=== PATIENT | female | born 1985 | race Caucasian/White ===

== ENCOUNTER 2017-08-28 21:22 | Inpatient (IN) | payer OTHER ==
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
[2017-08-28] MEDS ORDERED: OXYTOCIN/RINGERS LACTATE 1,000 ML IV PRN (21:53)
[2017-08-28] MEDS ORDERED: LIDOCAINE 1% 300 MG/30 ML SDV SC PRN (21:53)
[2017-08-28] MEDS ORDERED: OLIVE OIL 118 ML BTL MISC PRN (21:53)
[2017-08-28] MEDS ORDERED: AMMONIA AROMATIC 1 EACH AMP IH PRN (21:53)
[2017-08-28] MEDS ORDERED: IBUPROFEN 600 MG TAB PO PRN (21:53)
[2017-08-28] MEDS ORDERED: LR 1,000 ML IV PRN (21:53)
[2017-08-28] MEDS ORDERED: TERBUTALINE SULFATE 1 MG/ML VIAL IV PRN (21:53)
[2017-08-28] MEDS ORDERED: EPSOM SALT 454 GM TP PRN (21:53)
[2017-08-28] MEDS ORDERED: MISOPROSTOL 200 MCG TAB PO PRN (21:53)
[2017-08-28 22:32] LABS: PLATELET COUNT 220 10^3/uL (150-400)
[2017-08-28] MEDS ORDERED: MISOPROSTOL 200 MCG TAB ONE (22:45)
[2017-08-28] MEDS ORDERED: OXYTOCIN 10 UNIT/ML VIAL ONE (22:45)
[2017-08-28] MEDS ORDERED: AMMONIA AROMATIC 1 EACH AMP IH ONE (22:45)
[2017-08-28] MEDS ORDERED: OLIVE OIL 118 ML BTL ONE (22:45)
[2017-08-28] MEDS ORDERED: LIDOCAINE 1% 300 MG/30 ML SDV ONE (22:45)
[2017-08-28] MEDS ORDERED: PHENYLEPHRINE HCL 100 MCG/ML SYR ONE ×2 (23:10)
[2017-08-28] MEDS ORDERED: fentaNYL 200 MCG, BUPIVACAINE 0.5% 20 ML in NS 100 ML EP SCH (23:30)
[2017-08-28] MEDS ORDERED: LIDOCAINE 2% 100 MG/5 ML SYR ONE (23:34)
--- NOTE | 2017-08-29 00:23 | PREANESOB ---
Obstetric Pre-Anesthesia Info - General Info Proposed Procedure: ARA : 3 Para: 0 STEPHEN: 09/01/17 Gestational Age: 39 week(s) and 3 day(s) - Info Status: Full Term Monitors: External FHR Pattern: Reassuring - Labor Status Cervical Dilation per last OB SVE: 10 Indications for Labor Analgesia: Augmentation of Labor, Pain Control Labor Epidural: Proposed (RBA discussed, patient agrees to proceed) Anesthesia Allergies/Adverse Reactions: Allergy/AdvReac Type Severity Reaction Status Date / Time onion Allergy Verified 08/28/17 21:48 tomato Allergy Swelling/ne Verified 08/28/17 21:48 ck,face,thr oat Visit Medications: Generic Name Dose Route Start Last Admin Trade Name Freq PRN Reason Stop Dose Admin Ammonia (Aromatic Spirit) 1 each 08/28/17 21:53 Ammonia Aromatic IH 09/07/17 21:52 ONCE PRN Fainting Lactated Ringer's 1,000 mls @ 0 mls/hr 08/28/17 21:53 Lr IV 08/29/17 21:52 PRN PRN SEE PROTOCOL CONDITIONS Protocol Per Protocol Oxytocin/Lactated Ringer's 1,000 mls @ 0 mls/hr 08/28/17 21:53 Pitocin 20 Units/Lr (Premix) IV PRN PRN Post bleeding As Directed Fentanyl 200 mcg/ Bupivacaine 100 mls @ 0 mls/hr 08/28/17 23:30 HCl 20 ml/ Sodium Chloride EP 09/07/17 23:29 CONT JULIANA Protocol As Directed Ibuprofen 600 mg 08/28/17 21:53 Motrin PO ONCE PRN post , pain Lidocaine HCl 300 mg 08/28/17 21:53 Lidocaine Hcl 1% SC 02/24/18 21:52 ONCE PRN episiotomy Magnesium Sulfate 454 gm 08/28/17 21:53 Epsom Salt TP 02/24/18 21:52 Q1H PRN perineal discomfort Misoprostol 800 - 1,000 mcg 08/28/17 21:53 Cytotec PO 02/24/18 21:52 ONCE PRN Vaginal Atony/Bleeding [place] Oil 118 ml 08/28/17 21:53 Sweet Oil MISC 02/24/18 21:52 ONCE PRN perineal massage Terbutaline Sulfate 0.25 mg 08/28/17 21:53 Brethine IV 02/24/18 21:52 ONCE PRN Tachysystole Discontinued Medications Generic Name Dose Route Start Last Admin Trade Name Jose PRN Reason Stop Dose Admin Ammonia (Aromatic Spirit) Confirm 08/28/17 22:45 Ammonia Aromatic Administered 08/28/17 22:46 Dose 1 each IH .STK-MED ONE Lidocaine HCl Confirm 08/28/17 22:45 Lidocaine Hcl 1% Administered 08/28/17 22:46 Dose 300 mg .ROUTE .STK-MED ONE Lidocaine HCl Confirm 08/28/17 23:34 Lidocaine Hcl 2% Administered 08/28/17 23:35 Dose 100 mg .ROUTE .STK-MED ONE Misoprostol Confirm 08/28/17 22:45 Cytotec Administered 08/28/17 22:46 Dose 1,000 mcg .ROUTE .STK-MED ONE [place] Oil Confirm 08/28/17 22:45 Sweet Oil Administered 08/28/17 22:46 Dose 118 ml .ROUTE .STK-MED ONE Oxytocin Confirm 08/28/17 22:45 Pitocin Administered 08/28/17 22:46 Dose 10 unit .ROUTE .STK-MED ONE Phenylephrine HCl Confirm 08/28/17 23:10 Neosynephrine Administered 08/28/17 23:11 Dose 1,000 mcg .ROUTE .STK-MED ONE Phenylephrine HCl Confirm 08/28/17 23:10 Neosynephrine Administered 08/28/17 23:11 Dose 1,000 mcg .ROUTE .STK-MED ONE - Vital Signs Height/Weight (Nursing): Height 170.18 cm Weight 78.471 kg Labs: 08/28/17 21:41 Patient ABO/Rh O POSITIVE 08/28/17 21:41
[2017-08-29] MEDS ORDERED: LR 500 ML IV PRN (00:32)
[2017-08-29] MEDS ORDERED: ONDANSETRON 4 MG/2 ML VIAL IVP PRN ×2 (00:38→08:32)
[2017-08-29] MEDS ORDERED: PHENYLEPHRINE HCL 100 MCG/ML SYR IVP PRN ×2 (00:38→08:32)
[2017-08-29] MEDS ORDERED: OXYTOCIN/RINGERS LACTATE 500 ML IV SCH (01:00)
[2017-08-29] MEDS ORDERED: fentaNYL 2MCG/ML/BUP 0.1% RTU 100 ML EP SCH (01:00)
[2017-08-29] MEDS ORDERED: LR 500 ML IV SCH (01:00)
[2017-08-29] MEDS ORDERED: BUPIVACAINE 0.25% 30 ML SDV ONE (04:27)
[2017-08-29] MEDS ORDERED: LIDOCAINE 2% 100 MG/5 ML SYR ONE (04:41)
[2017-08-29] MEDS ORDERED: LIDOCAINE 2% 5 ML SDV ONE ×2 (05:13)
--- NOTE | 2017-08-29 06:05 | SOAPPROG ---
SOAP Progress Note Assessment/Plan: Assessment: Long discussion with mom and FOC regarding forceps vs vacuum, recommended VAVD - baby feels like direct OP but there is moderate caput and as I can't feel sutures clearly, I don't want to introduce the risk of inappropriate forceps placement over the face or eyes. Bladder drained with red rubber catheter, NICU paged and present. Vacuum applied to [id number] in between contractions then I pulled with pushing over the next 3 contractions - ultimately had three pop-offs, but also with minimal progress in terms of descent of the cranium. After the 3rd pop-off I removed the vacuum and counseled them that I don't think its appropriate to use the vacuum further nor forceps. I recommended moving towards . Pt really would like to avoid this. She requested to be able to push for another hour before making decisions about OR. FHR Category II with variable decels with with pushing, but overall very reassuring tracing. GBS unknown - Declining tx. JM Subjective: After admission, Claudia eventually got an epidural and started Pitocin. She has now pushed for another 2 hrs with some descent but still +3/5 station. Still having a lot of back and hip pain with baby in OP position. Discussed options for assisted delivery vs and she'd prefer attempt at OVD. Objective: Laboratory Results 08/28/17 21:41 ICD10 Worksheet Patient Problems: Problems Problem Status Onset Prolonged second stage (of labor) Acute - ICD10 Problem Qualifiers (1) Prolonged second stage (of labor)
[2017-08-29] MEDS ORDERED: LR 500 ML IV ONE (06:43)
[2017-08-29] MEDS ORDERED: ceFAZolin 2 GM/DEXTROSE 100 ML IV ONE (06:43)
[2017-08-29] MEDS ORDERED: fentaNYL 100 MCG/2 ML INJ IVP PRN (08:32)
[2017-08-29] MEDS ORDERED: NALOXONE HCL 0.4 MG/ML INJ IVP PRN (08:32)
[2017-08-29] MEDS ORDERED: MEPERIDINE 25 MG/0.5 ML AMP IVP PRN (08:32)
--- NOTE | 2017-08-29 08:32 | PREANESOB ---
Obstetric Pre-Anesthesia Info - General Info Proposed Procedure: C/S : 3 Para: 0 STEPHEN: 09/01/17 Gestational Age: 39 week(s) and 3 day(s) - Info Status: Full Term, [place] Monitors: External FHR Pattern: Reassuring - Labor Status Cervical Dilation per last OB SVE: 10 Section History: Primary Indications for Current Section: Arrest of Descent Labor Epidural: Yes (Epidural has sparing of Rt hip and sacral nerves; will remove cath and do SAB.) Anesthesia Allergies/Adverse Reactions: Allergy/AdvReac Type Severity Reaction Status Date / Time onion Allergy Verified 08/28/17 21:48 tomato Allergy Swelling/ne Verified 08/28/17 21:48 ck,face,thr oat Visit Medications: Generic Name Dose Route Start Last Admin Trade Name Freq PRN Reason Stop Dose Admin Ammonia (Aromatic Spirit) 1 each 08/28/17 21:53 Ammonia Aromatic IH 09/07/17 21:52 ONCE PRN Fainting Lactated Ringer's 1,000 mls @ 0 mls/hr 08/28/17 21:53 Lr IV 08/29/17 21:52 PRN PRN SEE PROTOCOL CONDITIONS Protocol Per Protocol Oxytocin/Lactated Ringer's 1,000 mls @ 0 mls/hr 08/28/17 21:53 Pitocin 20 Units/Lr (Premix) IV PRN PRN Post bleeding As Directed Fentanyl 200 mcg/ Bupivacaine 100 mls @ 0 mls/hr 08/28/17 23:30 08/29/17 06: 31 HCl 20 ml/ Sodium Chloride EP 09/07/17 23:29 100 mls CONT JULIANA Administration Protocol As Directed Lactated Ringer's 500 mls @ 500 mls/hr 08/29/17 00:32 Lr IV 08/30/17 00:32 PRN PRN Maternal Hypotension Oxytocin/Lactated Ringer's 500 mls @ 0 mls/hr 08/29/17 01:00 Pitocin 30 Units/Lr (Premix) IV 02/25/18 00:59 CONT JULIANA Protocol Per Protocol Lactated Ringer's 500 mls @ 0 mls/hr 08/29/17 01:00 Lr IV 02/25/18 00:59 CONT JULIANA As Directed Lactated Ringer's 1,000 mls @ 125 mls/hr 08/29/17 07:00 Lr IV 08/30/17 06:59 CONT JULIANA Ibuprofen 600 mg 08/28/17 21:53 Motrin PO ONCE PRN post , pain Lidocaine HCl 300 mg 08/28/17 21:53 Lidocaine Hcl 1% SC 02/24/18 21:52 ONCE PRN episiotomy Magnesium Sulfate 454 gm 08/28/17 21:53 Epsom Salt TP 02/24/18 21:52 Q1H PRN perineal discomfort Misoprostol 800 - 1,000 mcg 08/28/17 21:53 Cytotec PO 02/24/18 21:52 ONCE PRN Vaginal Atony/Bleeding [place] Oil 118 ml 08/28/17 21:53 Sweet Oil MISC 02/24/18 21:52 ONCE PRN perineal massage Ondansetron HCl 4 mg 08/29/17 00:38 Zofran IVP 08/30/17 00:37 Q4HRS PRN Nausea/Vomiting, Can't Take PO Phenylephrine HCl 100 mcg 08/29/17 00:38 Neosynephrine IVP 02/25/18 00:37 .Q2M PRN Hypotension Terbutaline Sulfate 0.25 mg 08/28/17 21:53 Brethine IV 02/24/18 21:52 ONCE PRN Tachysystole Discontinued Medications Generic Name Dose Route Start Last Admin Trade Name Freq PRN Reason Stop Dose Admin Ammonia (Aromatic Spirit) Confirm 08/28/17 22:45 Ammonia Aromatic Administered 08/28/17 22:46 Dose 1 each IH .STK-MED ONE Bupivacaine HCl Confirm 08/29/17 04:27 Sensorcaine 0.25% Sdv Administered 08/29/17 04:28 Dose 30 ml .ROUTE .STK-MED ONE Cefazolin Sodium/Dextrose 100 mls @ 200 mls/hr 08/29/17 06:43 Ancef 2 Gm IV 08/29/17 07:12 ONCALL ONE Protocol Lactated Ringer's 500 mls @ 0 mls/hr 08/29/17 06:43 Lr IV 08/29/17 06:44 ONCE ONE As Directed Lidocaine HCl Confirm 08/28/17 22:45 Lidocaine Hcl 1% Administered 08/28/17 22:46 Dose 300 mg .ROUTE .STK-MED ONE Lidocaine HCl Confirm 08/28/17 23:34 Lidocaine Hcl 2% Administered 08/28/17 23:35 Dose 100 mg .ROUTE .STK-MED ONE Lidocaine HCl Confirm 08/29/17 04:41 Lidocaine Hcl 2% Administered 08/29/17 04:42 Dose 100 mg .ROUTE .STK-MED ONE Lidocaine HCl Confirm 08/29/17 05:13 Xylocaine-Mpf 2% Vial Administered 08/29/17 05:14 Dose 5 ml .ROUTE .STK-MED ONE Lidocaine HCl Confirm 08/29/17 05:13 Xylocaine-Mpf 2% Vial Administered 08/29/17 05:14 Dose 5 ml .ROUTE .STK-MED ONE Misoprostol Confirm 08/28/17 22:45 Cytotec Administered 08/28/17 22:46 Dose 1,000 mcg .ROUTE .STK-MED ONE [place] Oil Confirm 08/28/17 22:45 Sweet Oil Administered 08/28/17 22:46 Dose 118 ml .ROUTE .STK-MED ONE Oxytocin Confirm 08/28/17 22:45 Pitocin Administered 08/28/17 22:46 Dose 10 unit .ROUTE .STK-MED ONE Phenylephrine HCl Confirm 08/28/17 23:10 Neosynephrine Administered 08/28/17 23:11 Dose 1,000 mcg .ROUTE .STK-MED ONE Phenylephrine HCl Confirm 08/28/17 23:10 Neosynephrine Administered 08/28/17 23:11 Dose 1,000 mcg .ROUTE .STK-MED ONE - Anesthesia History Response to Local Anesthetics: Normal Anesthesia & Operative History: No Prior Problems - Vital Signs Latest Vital Signs (Nursing): Temp Pulse Resp BP Pulse Ox 37.5 C 103 H 18 137/81 H 93 08/29/17 06:48 08/29/17 06:48 08/29/17 06:48 08/29/17 06:48 08/29/17 06:48 Height/Weight (Nursing): Height 170.18 cm Weight 78.471 kg - Focused Exam Neck exam: FROM Mallampati Score: Class 2 Mouth exam: normal dental/mouth exam Pulmonary: no respiratory distress, no rales or rhonchi, clear to auscultation Cardiovascular: regular rate and rhythym, no murmur, rub, or gallop Labs: 08/28/17 21:41 Patient ABO/Rh O POSITIVE 08/28/17 21:41 - Plan Consent Signed and on Chart: Yes Patient/Guardian Understands and Agrees to Plan: Yes
[2017-08-29] MEDS ORDERED: fentaNYL 100 MCG/2 ML INJ ONE (08:44)
[2017-08-29] MEDS ORDERED: morphINE PF 5 MG/10 ML INJ ONE (08:45)
[2017-08-29] MEDS ORDERED: OXYTOCIN 100 UNITS/10 ML VIAL ONE (09:40)
--- NOTE | 2017-08-29 11:11 | POSTANESTH ---
Post Anesthetic Evaluation Cardiovascular Status: Normal, Stable, Similar to Pre-Op Cond Respiratory Status: Normal, Stable, Similar to Pre-op Cond. Level of Consciousness/Mental Status: Can Participate in Eval, Alert and Oriented, Other, See Comment Pain Control: Adequate, Prn Tx Ordered Nausea/Vomiting Control: Adequate, Prn Tx Ordered Complications Possibly Related to Anesthesia: None Noted (SAB initially required supplemerntation with 1% lido skin injection and nitrous oxide but worked well thereafter.)
[2017-08-29] MEDS ORDERED: BISACODYL 10 MG SUPP PR PRN (11:13)
[2017-08-29] MEDS ORDERED: POLYETHYLENE GLYCOL 3350 17 GM PKT PO PRN (11:13)
[2017-08-29] MEDS ORDERED: MAGNESIUM HYDROXIDE 30 ML UDCUP PO PRN (11:13)
[2017-08-29] MEDS ORDERED: LACTULOSE 20 GM/30 ML UDCUP PO PRN (11:13)
[2017-08-29] MEDS ORDERED: KETOROLAC 30 MG/1 ML SDV ONE (11:17)
--- NOTE | 2017-08-29 11:18 | POSTOPPROG ---
Post Op Note Date of Operation: 08/29/17 Surgeon: Donna Vu Home Advisor: Jessika Chilel SA Anesthesiologist: Scar Leger MD Anesthesia: Spinal, Other (Specify) (approx 40 cc of 1 %lidocaine at SQ in incision area) Pre-op Diagnosis: IUP at 39+ wks, arrest of descent, meconium Post-op Diagnosis: same, deep transverse arrest Indication: Home tx - complete since 3p on 08/28, failed Vacuum attempt Procedure: primary LTCS Findings: nl ut/ov, good tone, mec, nl plac delivery, 1 min delayed, vigorous baby Inf/Abcess present in the surg proc area at time of surgery?: No Depth: Organ Space EBL: 500-1000 (800) Total fluids administered: 1300 Complications: difficult time elevating baby out of pelvis - rt hand/arm came through incision but pushed back in to fascilitate bringing head up - also used vag hand Specimen(s): none
[2017-08-29] MEDS: KETOROLAC 30 MG/1 ML SDV IVP SCH ×3 (11:20→23:30)
--- NOTE | 2017-08-29 11:22 | OBDEL ---
Info Type: Primary Presentation at Delivery: Vertex (deep transv arrest) L&D Analgesia/Anesthesia Type: Epidural, Spinal (for c/s and 1 % lidocaine on SQ - 40cc), Nitrous GBS+: No (unknown - pt decl testing and abx) Intrapartum Medications: Discontinued Medications Generic Name Dose Route Start Last Admin Trade Name Jose PRN Reason Stop Dose Admin Fentanyl 200 mcg/ Bupivacaine 100 mls @ 0 mls/hr 08/28/17 23:30 08/29/17 06: 31 HCl 20 ml/ Sodium Chloride EP 09/07/17 23:29 100 mls CONT JULIANA Administration Protocol As Directed Vaginal Delivery - Labor and Delivery Onset of Contractions Date: 08/28/17 Onset of Contractions Time: 04:20 Rupture of Membranes Date: 08/28/17 Rupture of Membranes Time: 10:00 Dilation Complete Date: 08/28/17 Dilation Complete Time: 15:30 Placenta Delivery Date: 08/29/17 Placenta Delivery Time: 09:41 Total Hours of Labor: 29 Operative Report - Delivery Pre-op Diagnoses: IUP at 39+wks, arrest of descent, prolonged second stage, meconium Post-op Diagnoses: same, delivered History of Prior Section: No Nulliparous Prior to Delivery: Yes Indications for Current Section: Arrest of Descent Procedure: Unscheduled, Low Transverse Surgeon: Donna Vu Shear Helper: Jessika Chilel Anesthesiologist: Ramirez Leger Complications: Other (Specify) (difficulty elevated head up from pelvis) Findings: nl ut/ov, good tone after delivery. very difficult time elevating head - right arm del through incision but pushed back in to fascilitate getting shoulders and head to elevate. utilized vag hand pressure. vigorous baby after delivery with good tone and resp/crying - no gasses taken. 1 min delayed cord clamp. mec noted upon amniotomy. bloody urine after replacing adams but clearing after delivery. nl 2 layer ut closure, minor right angle extension incorporated into hysterotomy closure. IV Fluid (ml): 1,300 EBL: 800 Data STEPHEN: 09/01/17 Gestational Age: 39 week(s) and 4 day(s) [place] Delivery Date: 08/29/17 Delivery Time: 09:38 Sex of : Female Score (1 Min): 8 Score (5 Min): 9 ICD10 Worksheet Patient Problems: Problems Problem Status Onset S/P primary low transverse Acute Prolonged second stage (of labor) Acute
[2017-08-29] MEDS: LR 1,000 ML IV SCH ×2 (13:11→13:30)
[2017-08-29] MEDS: IBUPROFEN 600 MG TAB PO SCH ×2 (14:04→19:24)
[2017-08-29] MEDS: ACETAMINOPHEN 325 MG TAB PO SCH ×2 (15:15→19:17)
[2017-08-30] MEDS: KETOROLAC 30 MG/1 ML SDV IVP SCH (05:23)
[2017-08-30] MEDS: IBUPROFEN 600 MG TAB PO SCH ×4 (07:41→23:22)
[2017-08-30] MEDS: ACETAMINOPHEN 325 MG TAB PO SCH ×4 (07:41→23:21)
[2017-08-30] MEDS: SENNOSIDES/DOCUSATE SODIUM TAB PO SCH ×3 (07:43→21:27)
[2017-08-30] MEDS: oxyCODONE IR 5 MG TAB PO PRN ×3 (14:24→22:41)
--- NOTE | 2017-08-30 18:16 | OBPP ---
Progress Note Assessment/Plan: Assessment: p1 pod# 1 s/p PLTCS arrest of descent anemia breast feeding Plan: routine post care iron 08/30/17 18:14 Subjective/ Course: 08/30/17 18:15 patient is doing well. pain is controlled. she has been hesitant to take narcotics but will take as needed. tolerating diet. normal lochia. denies headache and changes in vision. ambulating. voiding without difficulty. working on breast feeding. Objective: 08/30/17 05:30 Patient ABO/Rh O POSITIVE 08/28/17 21:41 Temp Pulse Resp BP Pulse Ox 36.8 C 68 16 106/65 96 08/30/17 08:50 08/30/17 08:50 08/30/17 08:50 08/30/17 08:50 08/30/17 08:50 Physical Exam - Physical Exam Neck: non-tender, full range of motion, supple Respiratory: chest non-tender, lungs clear, normal breath sounds Cardiac/Chest: normal peripheral pulses, regular rate, rhythm Abdomen: normal bowel sounds, non-tender, soft Extremities: normal range of motion, non-tender, normal inspection, normal capillary refill Skin: normal color, warm/dry Neuro/Psych: no motor/sensory deficits, alert, normal mood/affect, oriented x 3
--- NOTE | 2017-08-30 20:50 | SOAPPROG ---
SOAP Progress Note Assessment/Plan: Assessment: Patient has requested acupuncture for pain management post- from C- section and attempted vaginal delivery. She would also like to see if acupuncture can help with edema and stress and anxiety. Primary area of pain is at incision. Treatment: Auricular: Foraker Acupuncture (BFA), bilateral: Cingular gyrate, [place] 2, [place] Men, [place], [place]. Acupuncture treatment shown to reduce pain via the TRIAL ATTORNEY. Scalp: Bethanie Pattong: Image of pelvic region to improve blood flow, encourage healing, and relax the low back. Right Side: MALA 1-5 Balance the BL and SP meridian. Relax the spine and erector muscles. Reduce LBP. ST [address] and LI meridian. Reduce fatigue, increase energy. Aid digestion and move the bowels. ST 37 [place] of Large Intestine. Move the bowels. ST 39 [place] of Small Intestine. Move the bowels. ST 41 Relax the neck (SCM), balance the LI and SP meridian. ST [address] meridian. Improve breast milk flow. GB 34 Empirical point to relax the tendons. Balance LR and HT meridians. GB 40 Relax the occiput. Clear heat and inflammation. Balance LR and HT meridians. Reduce pain at incision. GB 41 Master point of Viviane Sue ([place]). Relieve pain at incision. Improve blood flow and reduce inflammation. BL 65 [place] point of BL meridian. Reduce LBP. Balance KI, SI, and BL. Left Side: SI 1 Balance HT, LR, and BL. Improve breast milk flow. SI 3 Master of the DU Sue. Reduce back pain in flexion and extension. SI 4 Balance HT, LR, and BL. Relax the occiput. Reduce back pain in flexion and extension. Ling Gu Extra point for LBP. Da Natacha Extra point for LBP. LI 4 Relax the face. Improve circulation. Encourage a bowel movement. Balance the LR and ST meridians. Encourage breast milk. LI [address] [place] [address]. Balance ST and LR meridians. Support digestion. SJ 5 Decrease edema. SP [address], SI, and MALA meridians. Move fluid. Encourage digestion and breast milk. LR 3 Move qi and blood. Reduce stress and anxiety. LR 5 x 3 rosa maria Balance GB and LI. Relax the trapezius. LR 8 Build blood. Move the blood. Balance GB and LI meridians. KI 3-10 Balance BL and HT meridians. Reduce fluid and edema. Support the LBP. Relax erector muscles. [place] retained for forty-five minutes. Acupuncture points chosen using the principles of Dr. Marcum's Balance Method. Plan: 08/30/17 20:24 08/30/17 20:51 Objective: Vital Signs Temp Pulse Resp BP Pulse Ox 36.8 C 83 18 127/83 H 96 08/30/17 16:30 08/30/17 16:30 08/30/17 16:30 08/30/17 16:30 08/30/17 16:30 Laboratory Results 08/30/17 05:30 08/29/17 08/30/17 08/31/17 05:59 05:59 05:59 Intake Total 9700 Output Total 300 3250 600 Balance -300 1677 -600 ICD10 Worksheet Patient Problems: Problems Problem Status Onset Prolonged second stage (of labor) Acute S/P primary low transverse Acute
[2017-08-30] MEDS: IRON POLYSAC/IRON HEME 28 MG TAB PO SCH (23:01)
[2017-08-31] MEDS: oxyCODONE IR 5 MG TAB PO PRN ×6 (01:59→23:25)
[2017-08-31] MEDS: ACETAMINOPHEN 325 MG TAB PO SCH ×4 (05:40→23:24)
[2017-08-31] MEDS: IBUPROFEN 600 MG TAB PO SCH ×4 (05:41→23:24)
--- NOTE | 2017-08-31 07:54 | POSTANESTH ---
Post Anesthetic Evaluation Cardiovascular Status: Similar to Pre-Op Cond Respiratory Status: Similar to Pre-op Cond. Level of Consciousness/Mental Status: Alert and Oriented Pain Control: Adequate, Prn Tx Ordered Nausea/Vomiting Control: Adequate, Prn Tx Ordered Complications Possibly Related to Anesthesia: None Noted
--- NOTE | 2017-08-31 10:08 | OBPP ---
Progress Note Assessment/Plan: Assessment: p1 pod# 2 s/p PLTCS arrest of descent anemia breast feeding Plan: Routine pp care Encourage ambulation iron bid 08/31/17 14:47 Subjective/ Course: 08/30/17 18:15 patient is doing well. pain is controlled. she has been hesitant to take narcotics but will take as needed. tolerating diet. normal lochia. denies headache and changes in vision. ambulating. voiding without difficulty. working on breast feeding. 08/31/17 14:48 Doing well today - Pain controlled with oral pain meds. Passing gas and tolerating regular diet. Working on breast feeding - baby having some difficulty latching on right side. Declining support - has home pinion staker coming in to assist this afternoon. Tolerating activity as long as she has pain medication. Objective: 08/30/17 05:30 Patient ABO/Rh O POSITIVE 08/28/17 21:41 Temp Pulse Resp BP Pulse Ox 36.9 C 66 14 118/73 96 08/31/17 08:00 08/31/17 08:00 08/31/17 08:00 08/31/17 08:00 08/31/17 08:00 Uterine Position/Fundal Height: Umbilicus -1 Uterine Tone: Firm Physical Exam - Physical Exam EENT: PERRL/EOMI Neck: non-tender Respiratory: lungs clear Cardiac/Chest: normal peripheral pulses Abdomen: hypoactive bowel sounds, soft, incision (well approximated - steri strips in place) Skin: normal color Neuro/Psych: no motor/sensory deficits, alert, normal mood/affect, oriented x 3
[2017-08-31] MEDS: SENNOSIDES/DOCUSATE SODIUM TAB PO SCH ×2 (10:36→19:58)
[2017-08-31] MEDS: IRON POLYSAC/IRON HEME 28 MG TAB PO SCH ×2 (11:41→19:59)
--- NOTE | 2017-08-31 15:39 | SOAPPROG ---
SOAP Progress Note Assessment/Plan: Assessment: Patient has requested acupuncture for pain management post- from C- section and attempted vaginal delivery. She would also like to see if acupuncture can help with edema and stress and anxiety. Primary area of pain is at incision. Treatment: Auricular: Kipp Acupuncture (BFA), bilateral: Cingular gyrate, Boaz 2, Casanova Men, Point Zero, Thalamus. Acupuncture treatment shown to reduce pain via the FOOD BEVERAGE SUPERVISOR. Scalp: Bethanie Pattong: Image of pelvic region to improve blood flow, encourage healing, and relax the low back. Right Side: MALA 1-5 Balance the BL and SP meridian. Relax the spine and erector muscles. Reduce LBP. ST [address] and LI meridian. Reduce fatigue, increase energy. Aid digestion and move the bowels. ST 37 [place] of Large Intestine. Move the bowels. ST 39 [place] of Small Intestine. Move the bowels. ST 41 Relax the neck (SCM), balance the LI and SP meridian. ST [address] [place] [address] meridian. Improve breast milk flow. GB 34 Empirical point to relax the tendons. Balance LR and HT meridians. GB 40 Relax the occiput. Clear heat and inflammation. Balance LR and HT meridians. Reduce pain at incision. GB 41 Master point of Viviane Sue ([place]). Relieve pain at incision. Improve blood flow and reduce inflammation. BL 65 [place] point of BL meridian. Reduce LBP. Balance KI, SI, and BL. Left Side: SI 1 Balance HT, LR, and BL. Improve breast milk flow. SI 3 Master of the DU Sue. Reduce back pain in flexion and extension. SI 4 Balance HT, LR, and BL. Relax the occiput. Reduce back pain in flexion and extension. Ling Gu Extra point for LBP. Da Natacha Extra point for LBP. LI 4 Relax the face. Improve circulation. Encourage a bowel movement. Balance the LR and ST meridians. Encourage breast milk. LI 11 [place] of ST. Balance ST and LR meridians. Support digestion. SJ 5 Decrease edema. SP [address], SI, and MALA meridians. Move fluid. Encourage digestion and breast milk. LR 3 Move qi and blood. Reduce stress and anxiety. LR 5 x 3 rosa maria Balance GB and LI. Relax the trapezius. LR 8 Build blood. Move the blood. Balance GB and LI meridians. KI 3-10 Balance BL and HT meridians. Reduce fluid and edema. Support the LBP. Relax erector muscles. [place] retained for forty-five minutes. Acupuncture points chosen using the principles of Dr. Marcum's Balance Method. Plan: 08/30/17 20:24 08/30/17 20:51 08/31/17 15:26 Patient is experiencing 5/10 at incision with movement. She has some stress and worry regarding having enough milk. We discussed both protein and caloric requirements for . 125g protein/day for . Also told the patient to focus on her own nourishment as the way to nourish her child. Recommended watching comedy and/or things that make her relax and smile to help her milk. Treatment: Auricular: Kipp Acupuncture (BFA), bilateral: Cingular gyrate, Boaz 2, Casanova Men, Point Zero, Thalamus. Acupuncture treatment shown to reduce pain via the FOOD BEVERAGE SUPERVISOR. Scalp: Bethanie Casanova Srinivasan: Image of pelvic region to improve blood flow, encourage healing, and relax the low back. Face: DU 26 Relax the sacrum and reduce pelvic pressure. Right Side: MALA 1-5 Balance the BL and SP meridian. Relax the spine and erector muscles. Reduce LBP. ST [address] and LI meridian. Reduce fatigue, increase energy. Aid digestion and move the bowels. ST 37 [place] Large Intestine. Move the bowels. ST 39 [place] of Small Intestine. Move the bowels. ST 41 Relax the neck (SCM), balance the LI and SP meridian. ST [address] [place] [address] meridian. Improve breast milk flow. GB 34 Empirical point to relax the tendons. Balance LR and HT meridians. GB 40 Relax the occiput. Clear heat and inflammation. Balance LR and HT meridians. Reduce pain at incision. GB 41 Master point of Viviane Rogers ([place]). Relieve pain at incision. Improve blood flow and reduce inflammation. BL 57 reduce sacral pressure and possible hemorrhoids. BL 65 [place] point of BL meridian. Reduce LBP. Balance KI, SI, and BL. Left Side: SI 1 Balance HT, LR, and BL. Improve breast milk flow. Carmella Well point. SI 3 Master of the DU Sue. Reduce back pain in flexion and extension. SI 4 Balance HT, LR, and BL. Relax the occiput. Reduce back pain in flexion and extension. Ling Gu Extra point for LBP. Da Natacha Extra point for LBP. LI 4 Relax the face. Improve circulation. Encourage a bowel movement. Balance the LR and ST meridians. Encourage breast milk. LI 11 [place] of ST. Balance ST and LR meridians. Support digestion. SJ 5 Decrease edema. SP 1 Carmella Well point to reduce inflammation at . SP [address], SI, and MALA meridians. Move fluid. Encourage digestion and breast milk. SP 6 Meeting of the three yin: LR, KI, SP. Support the uterus. Balance ST, MALA , and SI to move fluid and encourage breast milk. LR 3 Move qi and blood. Reduce stress and anxiety. LR 5 x 3 rosa maria Balance GB and LI. Relax the trapezius. LR 8 Build blood. Move the blood. Balance GB and LI meridians. KI 3-10 Balance BL and HT meridians. Reduce fluid and edema. Support the LBP. Relax erector muscles. [place] retained for seventy-five minutes. Acupuncture points chosen using the principles of Dr. Marcum's Balance Method. Objective: Vital Signs Temp Pulse Resp BP Pulse Ox 36.9 C 66 14 118/73 96 08/31/17 08:00 08/31/17 08:00 08/31/17 08:00 08/31/17 08:00 08/31/17 08:00 Laboratory Results 08/30/17 05:30 08/30/17 08/31/17 09/01/17 05:59 05:59 05:59 Intake Total 9700 Output Total 3250 600 Balance 6450 -600 ICD10 Worksheet Patient Problems: Problems Problem Status Onset Prolonged second stage (of labor) Acute S/P primary low transverse Acute
[2017-08-31] MEDS: [UNRECOGNIZED DRUG - OTHER] PO SCH (23:30)
[2017-09-01] MEDS: ACETAMINOPHEN 325 MG TAB PO SCH (05:42)
[2017-09-01] MEDS: IBUPROFEN 600 MG TAB PO SCH ×3 (05:42→19:21)
[2017-09-01] MEDS: oxyCODONE IR 5 MG TAB PO PRN ×2 (05:42→10:01)
[2017-09-01] MEDS: SENNOSIDES/DOCUSATE SODIUM TAB PO SCH ×2 (09:21→09:30)
[2017-09-01] MEDS: [UNRECOGNIZED DRUG - OTHER] PO SCH (09:30)
[2017-09-01] MEDS ORDERED: HYDROCODONE/APAP 5/325 TAB PO PRN (11:03)
--- NOTE | 2017-09-01 11:14 | OBPP ---
Progress Note Assessment/Plan: Assessment: 1) s/p PCS secondary to arrest of descent, failed vacuum POD # 3 - pt is stable 2) Anemia - pt is asymptomatic Plan: Continue routine post-op care Will try Kite for better pain control Also recommend abd binder Plans on going home today Instructions reviewed with pt Rx given for Kite, Ibuprofen Cont PNV, iron and colace Pelvic rest RTO in 2 weeks for incision check 09/01/17 11:16 Subjective/ Course: 08/30/17 18:15 patient is doing well. pain is controlled. she has been hesitant to take narcotics but will take as needed. tolerating diet. normal lochia. denies headache and changes in vision. ambulating. voiding without difficulty. working on breast feeding. 08/31/17 14:48 Doing well today - Pain controlled with oral pain meds. Passing gas and tolerating regular diet. Working on breast feeding - baby having some difficulty latching on right side. Declining support - has home fabric lay out worker coming in to assist this afternoon. Tolerating activity as long as she has pain medication. 09/01/17 11:08 Pt seen and examined. She is eating breakfast. States pain is not being well controlled with Oxy, Tylenol and Motrin-she is able to ambulate okay but sitting to standing is painful. She has to stand to pee secondary to pain. Mod lochia. Denies any f/c/n/v/CP or SOB. BF with difficulty, she is using donor milk. She is frustrated about situation here in hospital and having a , but happy to be going home. Objective: 08/30/17 05:30 Patient ABO/Rh O POSITIVE 08/28/17 21:41 Temp Pulse Resp BP Pulse Ox 36.9 C 73 16 125/82 H 95 09/01/17 08:00 09/01/17 08:00 09/01/17 08:00 09/01/17 08:00 08/31/17 20:00 Uterine Position/Fundal Height: Umbilicus -2 Uterine Tone: Firm Physical Exam - Physical Exam General Appearance: WD/WN, alert, no apparent distress Respiratory: lungs clear, normal breath sounds Cardiac/Chest: regular rate, rhythm Abdomen: normal bowel sounds, non-tender (Mild TTP diffusely), soft, flatus (+) , incision (C/D/I with steri strips) Extremities: non-tender, normal inspection Skin: normal color, warm/dry Neuro/Psych: alert, normal mood/affect, oriented x 3
--- NOTE | 2017-09-01 11:17 | OBGCSDC ---
General Delivery Information - General Info : 3 Para: 1 Abortions: 0 Type: Primary L&D Analgesia/Anesthesia Type: Epidural, Spinal, Nitrous Admission Date: 08/28/17 Labs: Patient ABO/Rh O POSITIVE 08/28/17 21:41 Hct 29.0 % (38.0-47.0) L 08/30/17 05:30 - Hospital Course : 08/30/17 18:15 patient is doing well. pain is controlled. she has been hesitant to take narcotics but will take as needed. tolerating diet. normal lochia. denies headache and changes in vision. ambulating. voiding without difficulty. working on breast feeding. 08/31/17 14:48 Doing well today - Pain controlled with oral pain meds. Passing gas and tolerating regular diet. Working on breast feeding - baby having some difficulty latching on right side. Declining support - has home traveling auditor coming in to assist this afternoon. Tolerating activity as long as she has pain medication. 09/01/17 11:08 Pt seen and examined. She is eating breakfast. States pain is not being well controlled with Oxy, Tylenol and Motrin-she is able to ambulate okay but sitting to standing is painful. She has to stand to pee secondary to pain. Mod lochia. Denies any f/c/n/v/CP or SOB. BF with difficulty, she is using donor milk. She is frustrated about situation here in hospital and having a , but happy to be going home. - Delivery Providers Surgeon: Donna Vu Marketing Summer Intern: Jessika Chilel Anesthesiologist: Ramirez Leger - Delivery Indications for Current Section: Arrest of Descent Surgical Procedures: Unscheduled, Low Transverse Intra-op Complications: Other (Specify) (difficulty elevated head up from pelvis ) EBL: 800 Data STEPHEN: 09/01/17 Gestational Age: 40 week(s) and 0 day(s) [place] Delivery Date: 08/29/17 Delivery Time: 09:38 Sex of Infant: Female [place] Weight (gm): 4404 g Score (1 Min): 8 Score (5 Min): 9 Discharge Information - Discharge Information Condition: Good Instruction/Follow Up: [facility]eks (with [facility]), Six Weeks (with traveling auditor)
[2017-09-01] MEDS: HYDROCODONE/APAP 5/325 TAB PO PRN ×5 (13:59→22:23)
[2017-09-02] MEDS: IBUPROFEN 600 MG TAB PO SCH ×2 (00:59→07:18)
[2017-09-02] MEDS: [UNRECOGNIZED DRUG - OTHER] PO SCH ×2 (00:59→08:57)
[2017-09-02] MEDS: HYDROCODONE/APAP 5/325 TAB PO PRN ×3 (02:01→11:14)
[2017-09-02] MEDS: SENNOSIDES/DOCUSATE SODIUM TAB PO SCH (08:56)
[2017-09-02 10:16] VITALS: BP 119/76
--- NOTE | 2017-09-02 11:35 | OBGCSDC ---
General Delivery Information - General Info : 3 Para: 1 Abortions: 0 Type: Primary L&D Analgesia/Anesthesia Type: Epidural, Spinal, Nitrous Admission Date: 08/28/17 Labs: Patient ABO/Rh O POSITIVE 08/28/17 21:41 Hct 29.0 % (38.0-47.0) L 08/30/17 05:30 - Hospital Course : 08/30/17 18:15 patient is doing well. pain is controlled. she has been hesitant to take narcotics but will take as needed. tolerating diet. normal lochia. denies headache and changes in vision. ambulating. voiding without difficulty. working on breast feeding. 08/31/17 14:48 Doing well today - Pain controlled with oral pain meds. Passing gas and tolerating regular diet. Working on breast feeding - baby having some difficulty latching on right side. Declining support - has home dry kiln operator coming in to assist this afternoon. Tolerating activity as long as she has pain medication. 09/01/17 11:08 Pt seen and examined. She is eating breakfast. States pain is not being well controlled with Oxy, Tylenol and Motrin-she is able to ambulate okay but sitting to standing is painful. She has to stand to pee secondary to pain. Mod lochia. Denies any f/c/n/v/CP or SOB. BF with difficulty, she is using donor milk. She is frustrated about situation here in hospital and having a , but happy to be going home. 09/02/17 11:34 Pt seen this morning. Was already discharged. we reviewed discharge teaching and danger/warning signs. aware to call if any questions or concerns. f/u in 2 weeks with [facility]. - Delivery Providers Surgeon: Donna Vu Internal Audit Director: Jessika Chilel Anesthesiologist: Ramirez Leger - Delivery Indications for Current Section: Arrest of Descent Surgical Procedures: Unscheduled, Low Transverse Intra-op Complications: Other (Specify) (difficulty elevated head up from pelvis ) EBL: 800 Data STEPHEN: 09/01/17 Gestational Age: 40 week(s) and 1 day(s) [place] Delivery Date: 08/29/17 Delivery Time: 09:38 Sex of : Female Weight (gm): 4404 g Score (1 Min): 8 Score (5 Min): 9 Discharge Information - Discharge Information Prescriptions: Hydrocodone/APAP 5/325 [[place] 5/325 (*)] 1 tab PO Q4HRS PRN #30 tab PRN Reason: Pain, Moderate Able To Take Po Ibuprofen [Motrin (*)] 600 mg PO Q6HRS PRN #30 tab PRN Reason: Pain, Mild Condition: Good Instruction/Follow Up: Two Weeks (with [facility] for incision check), Six Weeks (with dry kiln operator)
== END 2017-09-02 12:00 | disposition home or self-care (01) | DRG 766 ==
LOC: FLD 21:22 → FOB 08-29 13:20
PROVIDERS: ADMIT Obstetrics & Gynecology; ATTEND Obstetrics & Gynecology
PROC: 10D00Z1 Extraction of Products of Conception, Low, Open Approach (ICD-10-PCS; principal; 2017-08-28)
DX: O63.1 Prolonged second stage (of labor) (principal); O32.2XX0 Maternal care for transverse and oblique lie, not applicable or unspecified; O32.4XX0 Maternal care for high head at term, not applicable or unspecified; O76 Abnormality in fetal heart rate and rhythm complicating labor and delivery; O77.0 Labor and delivery complicated by meconium in amniotic fluid; O90.81 Anemia of the puerperium; Z3A.40 40 weeks gestation of pregnancy; Z37.0 Single live birth
CPT/HCPCS: J0690; J1885; J2001; J2274; J2370; J2590; J3010